=== PATIENT | male | born 1985 | race African-American/Black ===

== ENCOUNTER 2020-12-05 23:23 | Emergency (ER) | payer SELFPAY ==
[~2020-12-05] VITALS: Ht 177.8 cm; Wt 84.8 kg
[2020-12-05 23:24] VITALS: BP 141/84
[2020-12-06] MEDS ORDERED: LIDOCAINE W/EPINEPHRINE 1% 20ML VIAL As Ordered ONE (04:19)
[2020-12-06] MEDS ORDERED: LIDOCAINE W/EPINEPHRINE 1% 20ML VIAL SC ONE (04:20)
[2020-12-06] MEDS ORDERED: [UNRECOGNIZED DRUG - CODE] EX (04:44)
[2020-12-06] MEDS ORDERED: CEPH500C PO (04:44)
[2020-12-06] MEDS ORDERED: CEPHALEXIN 500 MG CAP PO ONE (04:45)
== END 2020-12-06 05:13 | disposition home or self-care (01) ==
LOC: M ED 23:23
DX: L02.01 Cutaneous abscess of face (principal); F17.210 Nicotine dependence, cigarettes, uncomplicated

== ENCOUNTER 2021-11-29 18:03 | Emergency (ER) | payer SELFPAY ==
[~2021-11-29 18:03] MED LIST: CEPH500C PO; [UNRECOGNIZED DRUG - CODE] EX
[2021-11-29] MEDS ORDERED: LIDOCAINE 2% W/EPINEPHRINE 20ML VIAL **PRES FREE INJ ONE (18:20)
[2021-11-29] MEDS ORDERED: BOOSTRIX/ADACEL VACCINE (DIPHTH/PERTUSS/ACELL/TETANUS) 0.5ML SYR IM ONE (18:20)
[2021-11-29] MEDS ORDERED: DERMABOND TOPICAL SKIN ADHESIVE TOP ONE (18:20)
[2021-11-29] MEDS ORDERED: OXYCODONE/APAP 5MG/325MG(HOME DOSE PACK) PO ONE (21:15)
[2021-11-29] MEDS ORDERED: AUGMENTIN 875 MG TAB PO ONE (21:15)
[2021-11-29] MEDS ORDERED: AMOX875T2 PO (21:36)
[2021-11-29 21:42] VITALS: BP 150/90
== END 2021-11-29 21:58 | disposition home or self-care (01) ==
LOC: EDBD 18:03 → M ED 18:03
DX: S01.511A Laceration without foreign body of lip, initial encounter (principal); S60.511A Abrasion of right hand, initial encounter; S00.83XA Contusion of other part of head, initial encounter; S80.811A Abrasion, right lower leg, initial encounter; S90.812A Abrasion, left foot, initial encounter; Y08.89XA Assault by other specified means, initial encounter; Y92.009 Unspecified place in unspecified non-institutional (private) residence as the place of occurrence of the external cause; Y93.9 Activity, unspecified; Y99.9 Unspecified external cause status; F17.200 Nicotine dependence, unspecified, uncomplicated; Z23 Encounter for immunization